=== PATIENT | male | born 1990 | race Caucasian/White ===

== ENCOUNTER 2019-01-23 22:11 | Emergency (ER) | payer BC ==
[2019-01-23] MEDS ORDERED: MORPHINE SULFATE 4 MG/ML SYRINGE IVP STA ×2 (22:21→23:02)
[2019-01-23 22:30] VITALS: RESP 18
[2019-01-23] MEDS ORDERED: ETOMIDATE 2 MG/ML 10 ML VIAL IVP STA (22:36)
--- NOTE | 2019-01-23 23:02 | XR ---
EXAM: XR Left Ankle Complete, 3 or More Views CLINICAL HISTORY: Pain TECHNIQUE: Frontal, lateral and oblique views of the left ankle. COMPARISON: No relevant prior studies available. FINDINGS: Bones/joints: Fracture of the distal diaphysis of the left fibula approximately 12 cm from the distal margin with an oblique fracture that is displaced laterally one shaft width. Talofibular and calcaneofibular ligaments appear intact. There is disruption of the tibiofibular junction. There is disruption of ankle mortise with lateral displacement of the talus relative to the tibia. Posterior malleolar fracture distal tibia The lateral malleolus is intact. The base of the fifth metatarsal is intact. No other fractures are identified. IMPRESSION: Disruption of the ankle mortise with lateral displacement of the talus and the distal fibula relative to the tibia. Disruption the tibiofibular junction. The fibular talar and fibular calcaneal ligaments appear intact. Distal diaphyseal fracture of the left fibula with one shaft width displacement laterally .
--- NOTE | 2019-01-23 23:08 | XR ---
EXAM: Single view lateral the foot CLINICAL HISTORY: Pain TECHNIQUE: lateral view of the left foot. COMPARISON: Ankle study performed same day FINDINGS: Bones/joints: Fracture the posterior malleolus identified on the lateral projection there appears slight displacement and distraction this is incompletely visualized the subtalar joint appears intact. The base the fifth metatarsal is intact. . No radiopaque foreign body. IMPRESSION: Left posterior malleolar fracture incompletely visualized
--- NOTE | 2019-01-23 23:14 | ED ---
Lower Extremity Injury HPI - General Chief Complaint: Extremity Injury, Lower Stated Complaint: Ankle injury Source: patient Mode of arrival: ambulatory Limitations: physical limitation - History of Present Illness Initial Comments: 28-year-old male presented for left ankle pain. Patient states this began just prior to arrival to emergency department. Patient states she was wrestling with a friend when he was put in position where he twisted his left ankle he is unsure the exact mechanism. He does not know which way bent however he states he noticed gross deformity as well as inability to weight-bear and extreme pain of the left ankle. Patient denies any numbness or loss sensation he denies any coolness or pallor of the extremity describes as sharp shooting pain he denies any pain of the knee had back he denies any head injury or neck injury. Patient was considered a fracture and presented for evaluation. Remaining review of systems negative patient denies any other areas of injury or pain. Patient states he was not thrown to the ground and had no injury to the head neck or back. - Related Data Previous Rx's Medication Instructions Recorded HYDROcodone/APAP 7.5-325MG [[place] 1 tab PO Q4H PRN 3 Days #18 tab 01/23/19 7.5-325] Allergies Allergy/AdvReac Type Severity Reaction Status Date / Time No Known Allergies Allergy Verified 01/23/19 22:30 Review of Systems ROS Statement: Those systems with pertinent positive or pertinent negative responses have been documented in the HPI. ROS Other: All systems not noted in ROS Statement are negative. Past Medical History Past Medical History: No Reported History History of Any Multi-Drug Resistant Organisms: None Reported Past Surgical History: Ear Surgery Additional Past Surgical History / Comment(s): facial Past Psychological History: No Psychological Hx Reported Smoking Status: Never smoker Past Alcohol Use History: Occasional Past Drug Use History: None Reported General Exam - General Exam Comments Initial Comments: General: The patient is awake and alert, in no distress, and does not appear acutely ill. Eye: +3 mm pupils are equal, round and reactive to light, extra-ocular movements are intact. No nystagmus. There is normal conjunctiva bilaterally. No signs of icterus. Ears, nose, mouth and throat: There are moist mucous membranes and no oral lesions. Neck: The neck is supple, there is no tenderness or JVD. Cardiovascular: There is a regular rate and rhythm. No murmur, rub or gallop is appreciated. Respiratory: Lungs are clear to auscultation, respirations are non-labored, breath sounds are equal. No wheezes, stridor, rales, or rhonchi. Gastrointestinal: Soft, non-distended, non-tender abdomen without masses or organomegaly noted. There is no rebound or guarding present. Bowel sounds are unremarkable. Musculoskeletal: Gross deformity of the left ankle upon inspection appears dislocated, soft tissue swelling over the ankle mortise. Patient is diffusely tender and cannot range at the left ankle. However patient has strong dorsalis pedis pulses that are equal and capillary refill that is brisk less than 3 seconds. Patient's compartments are soft and compressible. There is no ecchymosis. She was removed. Patient is no tenderness to palpation of the proximal tibia and fibula. No pain with logroll. Aside from in the left ankle Normal ROM, no tenderness of the right lower extremity joints. Strength 5/5 of the right lower extremity joints and at the left knee and hip. Sensation intact both proximal and distal to injury site no deficits. No evidence of foot drop Neurological: A&O x 3. CN II-XII intact, There are no obvious motor or sensory deficits. Coordination appears grossly intact. Speech is normal. Skin: Skin is warm and dry and no rashes or lesions are noted. Psychiatric: Cooperative, appropriate mood & affect, normal judgment. Limitations: physical limitation Course Vital Signs 01/23/19 01/23/19 01/23/19 22:15 23:01 23:12 Temperature 97.4 F L Pulse Rate 97 96 95 Respiratory 18 18 18 Rate Blood Pressure 98/77 147/84 131/81 O2 Sat by Pulse 97 100 10 L Oximetry 01/23/19 23:38 Temperature 98.8 F Pulse Rate 92 Respiratory 18 Rate Blood Pressure 133/77 O2 Sat by Pulse 100 Oximetry Medical Decision Making - Medical Decision Making 28-year-old male presenting today for chief complaint of left ankle pain. There is gross deformity examination however patient is neurovascularly intact. It appears dislocated imaging studies were obtained revealing a posterior malleolus fracture and mid shaft fibula fracture of the left ankle that appears to have syndesmotic disruption. There is no evidence of medial or lateral malleolus fracture. Patient does have a dislocation of the ankle initially began to initiate conscious sedation however ankle was reduced without. Patient was never administered etomidate. Reduction was performed by attending provider Dr. Schultz who evaluated patient and performing history and physical examination. Neurovascular exam post reduction after plaster posterior mold splint with stirrups was placed was unchanged from initial. Patient able to wiggle toes very strong dorsalis pedis pulses with brisk capillary refill. Patient states he has decrease in pain. I contacted on-call orthopedic surgeon physician speech therapy assistant for advanced orthopedics next branch reviewed imaging studies with attending provider and recommended splinting with outpatient orthopedic trauma surgeon follow-up. We will place Dr. Hinojosa on patietn discharge for f/u. I discussed the importance of nonweightbearing instruction in use of crutches which prescription was provided for patient as well as proper administration and use of opioids that were prescribed for pain management. Patient verbalizes understanding. Patient verbalizes understanding importance of follow-up. Return parameters were discussed at length the patient including return for any coolness pallor of the toes decreased sensation or pain that appears out of proportion. Patient should verbalizes understanding and is agreeable to plan he appears well. Patient was discharged appearing well. Disposition Clinical Impression: Dislocation of left ankle joint, Syndesmotic disruption of left ankle, Fracture, posterior malleolus, Fracture of shaft of left fibula Disposition: HOME SELF-CARE Condition: Good Instructions (If sedation given, give patient instructions): Ankle Fracture (ED) Additional Instructions: Please use medication as discussed. Please follow-up with orthopedic surgery as discussed I recommend follow-up with a trauma surgeon at [facility], Dr. Hinojosa within next 2-3 days. Please return to emergency room if the symptoms increase or worsen or for any other concerns any numbness tingling or loss sensation. Please rest ice and elevate the ankle while at home. Absolutely no weightbearing please use crutches for ambulation.. Prescriptions: HYDROcodone/APAP 7.5-325MG [[place] 7.5-325] 1 tab PO Q4H PRN 3 Days #18 tab PRN Reason: Severe Pain Is patient prescribed a controlled substance at d/c from ED?: Yes When asked, does pt state using other controlled substances?: No If prescribed controlled substance>3 days was MAPS reviewed?: Prescribed <3 Days If opioid is for acute pain is fill amount 7 days or less?: Yes If Rx opioid, was Start Talking consent form obtained?: Yes Referrals: None,Stated [Primary Care Provider] - 1-2 days Micheal Hinojosa DO [REFERRING] - 1-2 days Vipin Owen MD [Medical Doctor] - 1-2 days Time of Disposition: 23:33
[2019-01-23 23:42] VITALS: BP 133/77; PULSE 92; TEMP 98.8
[2019-01-23] MEDS ORDERED: ACET/COD 300 MG/30 MG STARTER PACK 6 TAB BTL PO STA (23:52)
--- NOTE | 2019-01-24 00:10 | XR ---
EXAM: XR Left Ankle Complete, 3 or More Views CLINICAL HISTORY: : Pain TECHNIQUE: Frontal, lateral and oblique views of the left ankle. COMPARISON: No relevant prior studies available. FINDINGS: Bones/joints: There appears to be splint or cast material in place over the left lower extremity. There is reapproximation of the distal fibular fragment. There appears to be some residual distraction of the posterior malleolar fracture there is persistent widening of the ankle mortise is suggested there appears to be better approximation of the tibiofibular junction. Soft tissues: Unremarkable. IMPRESSION: Cast material with reapproximation of the fibular fracture there is some persistent widening of ankle mortise with reapproximation of the tibiofibular junction
== END 2019-01-23 23:56 | disposition home or self-care (01) ==
LOC: EC 22:11
DX: S93.05XA Dislocation of left ankle joint, initial encounter (principal); S82.892A Other fracture of left lower leg, initial encounter for closed fracture; S82.402A Unspecified fracture of shaft of left fibula, initial encounter for closed fracture; X50.1XXA Overexertion from prolonged static or awkward postures, initial encounter; Y93.72 Activity, wrestling
CPT/HCPCS: 73600; 73620; 99283; 27840; 96374; 96376; J2270

== ENCOUNTER → 2019-01-28 | Outpatient (CLI) | payer BC ==
--- NOTE | 2019-01-29 07:53 | CT ---
EXAMINATION TYPE: CT ankle LT wo con DATE OF EXAM: 01/28/2019 COMPARISON: 01/23/2019 plain film HISTORY: Left ankle pain CT DLP: 283 mGycm, Automated exposure control for dose reduction was used. CONTRAST: Performed injected with 0 mL of Isovue 300. TECHNIQUE: Axial images were obtained at 3 mm thick sections. Reconstructed images are reviewed on [employer] computer in the coronal plane. Three-D reconstructed images performed by the technologist are pres ented. FINDINGS: There is a distal diaphyseal fibular fracture. There is slight displacement of the proximal portion f rom the distal portion fracture fragments. This is mildly comminuted at the fibular fracture site. Re constructed coronal plane images of tiny calcifications adjacent to the talus, small avulsion from th e talofibular ligament may be present. Series 8 image 35. There is a posterior tibial fracture which extends to the articular surface posteriorly. This is near -anatomic with only slight lateral displacement. Talus may have mild lateral subluxation in relation to the distal tibia on reconstructed coronal plan e images. Mild widening talotibial junction from the medial malleolus may be present. This measures 0 .8 cm versus a 0.3 cm distance at the talofibular lateral malleolus. Medial malleolus appears intact without fracture or avulsion. No additional fractures are evident. There is soft tissue swelling at the medial malleolus. Soft tissue swelling is at the fracture site o f the distal fibula. Significant joint effusion is not appreciated, small joint effusion may be prese nt. IMPRESSIONS: 1. Comminuted fracture distal fibula. 2. Posterior tibial fracture with involvement of the posterior articular surface. 3. Tiny avulsion at the lateral talus. 4. Suspected mild subluxation of the talus in relation to the tibia. 5. Soft tissue swelling at the fracture sites.
== END | disposition home or self-care (01) ==
LOC: RADCTMAIN 15:55
PROVIDERS: ATTEND Orthopaedic Surgery
DX: S82.832A Other fracture of upper and lower end of left fibula, initial encounter for closed fracture (principal); S82.302A Unspecified fracture of lower end of left tibia, initial encounter for closed fracture; S92.152A Displaced avulsion fracture (chip fracture) of left talus, initial encounter for closed fracture

== ENCOUNTER 2019-12-19 18:23 | Emergency (ER) | payer BC ==
[2019-12-19] MEDS ORDERED: ALBUTEROL HFA INHALER INHALATION STA ×2 (19:07→20:51)
[2019-12-19] MEDS ORDERED: ACETAMINOPHEN TAB 500 MG TAB PO STA (19:07)
[2019-12-19] MEDS ORDERED: ACETAMINOPHEN TAB 500 MG TAB PO PRN (19:07)
--- NOTE | 2019-12-19 19:13 | ED ---
General Adult HPI - General Chief complaint: Shortness of Breath Stated complaint: Cough and dyspnea Time Seen by Provider: 12/19/19 18:32 Source: patient, RN notes reviewed Mode of arrival: ambulatory Limitations: no limitations - History of Present Illness Initial comments: Patient is a pleasant 29-year-old male presenting to the emergency Department with cough and shortness of breath. Onset of symptoms was around 3 days ago. Patient has had fevers. Cough is mostly nonproductive, occasionally some yellow sputum. Patient does have history of asthma however has not used an inhaler in years. Minimal rhinorrhea. No leg pain or leg swelling. - Related Data Home Medications Medication Instructions Recorded Confirmed Amoxic-Pot Clav 500-125 mg 1 tab PO Q12HR 12/19/19 12/19/19 [Augmentin 500-125 mg] Previous Rx's Medication Instructions Recorded Albuterol Sulfate [Proair Hfa] 1 - 2 puff INHALATION Q6HR PRN #1 12/19/19 inhaler Azithromycin [Zithromax Z-pack] 250 mg PO DIRECTED #6 tab 12/19/19 Allergies Allergy/AdvReac Type Severity Reaction Status Date / Time No Known Allergies Allergy Verified 12/19/19 18:58 Review of Systems ROS Statement: Those systems with pertinent positive or pertinent negative responses have been documented in the HPI. ROS Other: All systems not noted in ROS Statement are negative. Constitutional: Reports: fever, chills Eyes: Denies: eye pain ENT: Denies: ear pain Respiratory: Reports: cough, dyspnea Cardiovascular: Denies: chest pain Endocrine: Reports: fatigue Gastrointestinal: Denies: abdominal pain Genitourinary: Denies: dysuria Musculoskeletal: Denies: back pain Skin: Denies: rash Neurological: Denies: weakness Past Medical History Past Medical History: Asthma History of Any Multi-Drug Resistant Organisms: None Reported Past Surgical History: Ear Surgery Additional Past Surgical History / Comment(s): facial Past Psychological History: No Psychological Hx Reported Smoking Status: Never smoker Past Alcohol Use History: Occasional Past Drug Use History: None Reported General Exam Limitations: no limitations General appearance: alert, in no apparent distress Head exam: Present: normocephalic Eye exam: Present: normal appearance, PERRL Neck exam: Present: normal inspection Respiratory exam: Present: rhonchi Cardiovascular Exam: Present: regular rate, normal rhythm GI/Abdominal exam: Present: soft. Absent: tenderness Extremities exam: Present: normal inspection. Absent: pedal edema, calf tenderness Neurological exam: Present: alert Psychiatric exam: Present: normal affect, normal mood Skin exam: Present: normal color Course Vital Signs 12/19/19 12/19/19 12/19/19 18:25 18:52 19:09 Temperature 99.6 F 100.1 F H Pulse Rate 105 H Respiratory 18 20 Rate Blood Pressure 139/83 O2 Sat by Pulse 98 Oximetry EKG Findings - EKG Comments: EKG Findings:: Normal sinus rhythm 89. AK 142. QRS 110. QT 362. QTC 440. Right axis. Normal QRS. No acute ST change. Medical Decision Making - Medical Decision Making Patient reevaluated and feeling much better. Ferritin and pro-calcitonin are send out labs are not available at this time. Elevated CRP is concerning. Patient is made aware that he could have coronavirus although testing was negative. Patient is advised to return if short of breath or worsening symptoms and to self quarantined 14 days. - Lab Data Result diagrams: 12/19/19 19:35 12/19/19 19:35 Lab Results 12/19/19 12/19/19 12/19/19 Range/Units 19:35 19:35 19:35 WBC 11.1 H (3.8-10.6) k/uL RBC 4.92 (4.30-5.90) m/uL Hgb 14.5 (13.0-17.5) gm/dL Hct 42.3 (39.0-53.0) % MCV 85.9 (80.0-100.0) fL MCH 29.5 (25.0-35.0) pg MCHC 34.4 (31.0-37.0) g/dL RDW 12.4 (11.5-15.5) % Plt Count 349 (150-450) k/uL Neutrophils % 73 % Lymphocytes % 11 % Monocytes % 8 % Eosinophils % 6 % Basophils % 0 % Neutrophils # 8.2 H (1.3-7.7) k/uL Lymphocytes # 1.3 (1.0-4.8) k/uL Monocytes # 0.9 (0-1.0) k/uL Eosinophils # 0.6 (0-0.7) k/uL Basophils # 0.0 (0-0.2) k/uL PT 9.5 (9.0-12.0) sec INR 0.9 (<1.2) APTT 26.7 (22.0-30.0) sec D-Dimer 0.26 (<0.60) mg/L FEU Sodium 137 (137-145) mmol/L Potassium 4.2 (3.5-5.1) mmol/L Chloride 102 (98-107) mmol/L Carbon Dioxide 28 (22-30) mmol/L Anion Gap 7 mmol/L BUN 11 (9-20) mg/dL Creatinine 0.84 (0.66-1.25) mg/dL Est GFR (CKD-EPI)AfAm >90 (>60 ml/min/1.73 sqM) Est GFR (CKD-EPI)NonAf >90 (>60 ml/min/1.73 sqM) Glucose 102 H (74-99) mg/dL Plasma Lactic Acid Parveen (0.7-2.0) mmol/L Calcium 9.4 (8.4-10.2) mg/dL Magnesium 2.1 (1.6-2.3) mg/dL Total Bilirubin 0.7 (0.2-1.3) mg/dL AST 32 (17-59) U/L ALT 38 (4-49) U/L Alkaline Phosphatase 106 (38-126) U/L Lactate Dehydrogenase 424 (313-618) U/L C-Reactive Protein 72.6 H (<10.0) mg/L Total Protein 7.3 (6.3-8.2) g/dL Albumin 4.4 (3.5-5.0) g/dL Coronavirus (PCR) (Not Detectd) Influenza Type A RNA (Not Detectd) Influenza Type B (PCR) (Not Detectd) 12/19/19 12/19/19 Range/Units 19:35 19:35 WBC (3.8-10.6) k/uL RBC (4.30-5.90) m/uL Hgb (13.0-17.5) gm/dL Hct (39.0-53.0) % MCV (80.0-100.0) fL MCH (25.0-35.0) pg MCHC (31.0-37.0) g/dL RDW (11.5-15.5) % Plt Count (150-450) k/uL Neutrophils % % Lymphocytes % % Monocytes % % Eosinophils % % Basophils % % Neutrophils # (1.3-7.7) k/uL Lymphocytes # (1.0-4.8) k/uL Monocytes # (0-1.0) k/uL Eosinophils # (0-0.7) k/uL Basophils # (0-0.2) k/uL PT (9.0-12.0) sec INR (<1.2) APTT (22.0-30.0) sec D-Dimer (<0.60) mg/L FEU Sodium (137-145) mmol/L Potassium (3.5-5.1) mmol/L Chloride (98-107) mmol/L Carbon Dioxide (22-30) mmol/L Anion Gap mmol/L BUN (9-20) mg/dL Creatinine (0.66-1.25) mg/dL Est GFR (CKD-EPI)AfAm (>60 ml/min/1.73 sqM) Est GFR (CKD-EPI)NonAf (>60 ml/min/1.73 sqM) Glucose (74-99) mg/dL Plasma Lactic Acid Parveen 1.4 (0.7-2.0) mmol/L Calcium (8.4-10.2) mg/dL Magnesium (1.6-2.3) mg/dL Total Bilirubin (0.2-1.3) mg/dL AST (17-59) U/L ALT (4-49) U/L Alkaline Phosphatase (38-126) U/L Lactate Dehydrogenase (313-618) U/L C-Reactive Protein (<10.0) mg/L Total Protein (6.3-8.2) g/dL Albumin (3.5-5.0) g/dL Coronavirus (PCR) Not Detected (Not Detectd) Influenza Type A RNA Not Detected (Not Detectd) Influenza Type B (PCR) Not Detected (Not Detectd) - Radiology Data Radiology results: image reviewed (Chest x-ray shows patchy density medial margin right upper lobe that could represent developing infiltrate.) Disposition Clinical Impression: Pneumonia Disposition: HOME SELF-CARE Condition: Stable Instructions (If sedation given, give patient instructions): Community Acquired Pneumonia (ED) Additional Instructions: It is possible that you could have coronavirus. Please return for any diff iculty in breathing, chest pain or increased fevers, worsening symptoms or other concerns. Self quarantined for 14 days to avoid possible spread. Please follow-up with primary care physician in the next couple days for recheck. Work note written. Prescriptions have been sent to pharmacy Prescriptions: Albuterol Sulfate [Proair Hfa] 1 - 2 puff INHALATION Q6HR PRN #1 inhaler PRN Reason: Dyspnea Azithromycin [Zithromax Z-pack] 250 mg PO DIRECTED #6 tab Is patient prescribed a controlled substance at d/c from ED?: No Time of Disposition: 21:16
[2019-12-19] MEDS ORDERED: ALBUTEROL NEBULIZED 2.5 MG/3 ML INHALATION STA (19:17)
[2019-12-19 19:53] LABS: Basophils % (A) 0 %; Eosinophils # (A) 0.6 k/uL (0-0.7); Eosinophils % (A) 6 %; HCT 42.3 % (39.0-53.0); HGB 14.5 gm/dL (13.0-17.5); Lymphocytes # (A) 1.3 k/uL (1.0-4.8); Lymphocytes % (A) 11 %; MCH 29.5 pg (25.0-35.0); MCHC 34.4 g/dL (31.0-37.0); MCV 85.9 fL (80.0-100.0); Mean Platelet Volume 7.6; Monocytes # (A) 0.9 k/uL (0-1.0); Monocytes % (A) 8 %; Neutrophils # (A) 8.2 k/uL (1.3-7.7); Neutrophils % (A) 73 %; Platelet Count 349 k/uL (150-450); RBC 4.92 m/uL (4.30-5.90); RDW 12.4 % (11.5-15.5); WBC 11.1 k/uL (3.8-10.6)
[2019-12-19 20:01] LABS: ALT 38 U/L (4-49); AST 32 U/L (17-59); African American GFR (CKD) >90 (>60 ml/min/1.73 sqM); Albumin 4.4 g/dL (3.5-5.0); Alkaline Phosphatase 106 U/L (38-126); Anion Gap 7 mmol/L; Blood Urea Nitrogen 11 mg/dL (9-20); C Reactive Protein 72.6 mg/L (<10.0); Calcium 9.4 mg/dL (8.4-10.2); Carbon Dioxide 28 mmol/L (22-30); Chloride 102 mmol/L (98-107); Glucose 102 mg/dL (74-99); LDH 424 U/L (313-618); Magnesium 2.1 mg/dL (1.6-2.3); Non-African American GFR(CKD) >90 (>60 ml/min/1.73 sqM); Potassium 4.2 mmol/L (3.5-5.1); Sodium 137 mmol/L (137-145); Total Bilirubin 0.7 mg/dL (0.2-1.3); Total Protein 7.3 g/dL (6.3-8.2)
[2019-12-19 20:07] LABS: D-Dimer 0.26 mg/L FEU (<0.60); INR 0.9 (<1.2); Partial Thromboplastin Time 26.7 sec (22.0-30.0); Prothrombin Time 9.5 sec (9.0-12.0)
--- NOTE | 2019-12-19 20:30 | XR ---
EXAMINATION TYPE: XR chest 1V portable DATE OF EXAM: 12/19/2019 COMPARISON: 03/11/2011 HISTORY: Cough TECHNIQUE: Single frontal view of the chest is obtained. FINDINGS: There is increased density along the right paratracheal line. No pleural effusion or pneum othorax. Heart size normal. Chronic left clavicular fracture. IMPRESSION: 1. Patchy asymmetric density medial margin right upper lobe could represent developing infiltrate cor relate clinically.
[2019-12-19 21:23] VITALS: BP 118/69; PULSE 89; RESP 18; TEMP 98.4
[2019-12-19] MEDS ORDERED: AZITHROMYCIN 500 MG TAB PO STA (21:23)
[2019-12-20 10:28] LABS: Ferritin 147.9 ng/mL (22.0-322.0)
== END 2019-12-19 21:34 | disposition home or self-care (01) ==
LOC: EC 18:23
DX: Z03.818 Encounter for observation for suspected exposure to other biological agents ruled out (principal); J18.9 Pneumonia, unspecified organism; R79.82 Elevated C-reactive protein (CRP); Z87.09 Personal history of other diseases of the respiratory system
CPT/HCPCS: 36415; 71045; 80053; 82728; 83605; 83615; 83735; 84145; 85025; 85379; 85610; 85730; 86140; 87040; 87502; 87635; 94640; 99285

== ENCOUNTER 2025-03-01 14:24 | Emergency (ER) | payer BC ==
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
--- NOTE | 2025-03-01 16:13 | XR ---
EXAMINATION TYPE: XR knee complete RT DATE OF EXAM: 03/01/2025 4:08 PM COMPARISON: None. CLINICAL INDICATION: Male, 34 years old with history of fall, pain TECHNIQUE: 3 view(s) obtained. FINDINGS: No acute fracture or dislocation evident. Joint spaces are preserved. No joint effusion is evident. F ollow-up can be performed as clinically indicated. IMPRESSION: 1. No acute osseous abnormality right knee [facility], , 03/01/2025 4:11 PM
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
[2025-03-01 16:56] LABS: Basophils # (A) 0.08 10*3/uL (0.00-0.10); Basophils % (A) 0.9 %; Eosinophils # (A) 0.11 10*3/uL (0.04-0.35); Eosinophils % (A) 1.2 %; HCT 37.7 % (39.6-50.0); HGB 12.9 g/dL (13.0-17.0); Lymphocytes # (A) 1.72 10*3/uL (0.90-5.00); Lymphocytes % (A) 18.8 %; MCH 29.6 pg (27.0-32.0); MCHC 34.2 g/dL (32.0-37.0); MCV 86.5 fL (80.0-97.0); Mean Platelet Volume 9.6 fL (9.5-12.2); Monocytes # (A) 1.03 10*3/uL (0.20-1.00); Monocytes % (A) 11.2 %; Neutrophils % (A) 67.7 %; Platelet Count 323 10*3/uL (140-440); RBC 4.36 10*6/uL (4.40-5.60); RDW 12.3 % (11.5-14.5); WBC 9.16 10*3/uL (4.50-10.00)
[2025-03-01 17:14] LABS: ALT 44 U/L (4-49); AST 43 U/L (17-59); African American GFR (CKD) >90 (>60 ml/min/1.73 sqM); Albumin 4.5 g/dL (3.5-5.0); Alkaline Phosphatase 94 U/L (38-126); Anion Gap 9 mmol/L; Blood Urea Nitrogen 14 mg/dL (9-20); Calcium 9.3 mg/dL (8.4-10.2); Carbon Dioxide 25 mmol/L (22-30); Chloride 105 mmol/L (98-107); Glucose 95 mg/dL (74-99); Non-African American GFR(CKD) >90 (>60 ml/min/1.73 sqM); Sodium 139 mmol/L (137-145); Total Bilirubin 1.8 mg/dL (0.2-1.3); Total Protein 7.1 g/dL (6.3-8.2)
[2025-03-01] MEDS: SODIUM CHLORIDE 0.9% 1,000 ML IV STA (17:24)
[2025-03-01 18:05] LABS: Appearance,Urine Clear (Clear); Bilirubin,Urine Negative (Negative); Blood,Urine Negative (Negative); Color,Urine Yellow; Glucose,Urine (UA) Negative (Negative); Ketones,Urine 1+ (Negative); Leukocyte Esterase,Urine Negative (Negative); Nitrite,Urine Negative (Negative); Protein,Urine Negative (Negative); Specific Gravity,Urine 1.029 (1.001-1.035)
[2025-03-01 18:52] VITALS: BP 148/89; PULSE 76; RESP 18; TEMP 97.9
== END 2025-03-01 18:53 | disposition home or self-care (01) ==
LOC: EC 14:24
DX: S93.401A Sprain of unspecified ligament of right ankle, initial encounter (principal); R11.2 Nausea with vomiting, unspecified; Y30.XXXA Falling, jumping or pushed from a high place, undetermined intent, initial encounter
CPT/HCPCS: 36415; 80053; 81003; 85025; 96360; 99284